=== PATIENT | female | born 1955 | race Caucasian/White ===

== ENCOUNTER 2020-09-09 08:43 | Emergency (ER) | payer MEDICARE, BC ==
[2020-09-09] MEDS ORDERED: Acetaminophen 325 MG Tab PO PRN (09:39)
[2020-09-09] MEDS ORDERED: Albuterol/Ipratropium 4 GM Inhalation Spray INH STA (09:41)
--- NOTE | 2020-09-09 09:43 | EDM.PDOC ---
ED HPI GENERAL MEDICAL PROBLEM - General Chief Complaint: General Stated Complaint: MEDICAL Time Seen by Provider: 09/09/20 09:07 Source of Information: Reports: Patient, RN Notes Reviewed History Limitations: Reports: No Limitations - History of Present Illness INITIAL COMMENTS - FREE TEXT/NARRATIVE: 64-year-old female presents emergency department today with complaint of incr easing shortness of breath, loss of taste and smell has had fevers at home she has been ill for about a week. She did receive her flu vaccine this fall she denies any exposure has been staying at home but has been to the grocery store. - Related Data Allergies Allergy/AdvReac Type Severity Reaction Status Date / Time No Known Allergies Allergy Verified 09/09/20 08:57 Home Meds: Home Meds Aspirin 81 mg PO DAILY 09/09/20 [History] Benzonatate [Tessalon Perle] 100 mg PO TID PRN #20 capsule 09/09/20 [Rx] Fluticasone Propion/Salmeterol [Advair 250-50 Diskus] 1 puff INH BID 09/09/20 [History] Metoprolol Tartrate 12.5 mg PO BID 09/09/20 [History] Oxybutynin [Oxybutynin ER] 5 mg PO DAILY 09/09/20 [History] atorvaSTATin [Lipitor] 20 mg PO BEDTIME 09/09/20 [History] hydroCHLOROthiazide [Hydrochlorothiazide] 12.5 mg PO DAILY 09/09/20 [History] Past Medical History Cardiovascular History: Reports: Hypertension, Stents Respiratory History: Reports: Asthma Genitourinary History: Reports: Other (See Below) Other Genitourinary History: frequency VP SALES History: Reports: - Infectious Disease History Infectious Disease History: Reports: Chicken Pox, Measles, Mumps - Past Surgical History GI Surgical History: Reports: Cholecystectomy Social & Family History - Tobacco Use Tobacco Use Status *Q: Never Tobacco User - Caffeine Use Caffeine Use: Reports: Coffee - Recreational Drug Use Recreational Drug Use: No ED ROS GENERAL - Review of Systems Review Of Systems: See Below Constitutional: Reports: Fever, Chills, Weakness HEENT: Reports: No Symptoms Respiratory: Reports: Shortness of Breath, Cough Cardiovascular: Reports: No Symptoms GI/Abdominal: Reports: No Symptoms ED EXAM, GENERAL - Physical Exam Exam: See Below Exam Limited By: No Limitations General Appearance: Alert, WD/WN, No Apparent Distress Respiratory/Chest: No Respiratory Distress, No Accessory Muscle Use, Chest Non- Tender, Wheezing Cardiovascular: Regular Rate, Rhythm, No Murmur GI/Abdominal: Soft, Non-Tender Course - Vital Signs Last Recorded V/S: Last Vital Signs Temp 99.9 F 09/09/20 10:43 Pulse 96 09/09/20 08:58 Resp 23 H 09/09/20 08:58 BP 148/87 H 09/09/20 08:58 Pulse Ox 97 09/09/20 08:58 - Orders/Labs/Meds Orders: Active Orders 24 hr Category Date Time Status Nurse Communication: Isolation [RC] ASDIRECTED Care 09/09/20 09:40 Active RT Post Treatment Assessment [RC] Click to Edit Care 09/09/20 09:42 Active CORONAVIRUS COVID-19, [facility] Stat Lab 09/09/20 09:39 Received Acetaminophen [TylenoL] Med 09/09/20 09:39 Active 650 mg PO Q4H PRN Isolation [COMM] Stat Oth 09/09/20 09:39 Ordered Medication Orders Acetaminophen (Tylenol) 650 mg PO Q4H PRN PRN Reason: Fever Greater Than 101 Last Admin: 09/09/20 10:43 Dose: 650 mg Documented by: RANJAN Labs: Laboratory Tests 09/09/20 09/09/20 09/09/20 Range/Units 09:19 09:19 09:19 WBC 4.6 (4.5-11.0) K/uL RBC 4.08 (3.30-5.50) M/uL Hgb 12.2 (12.0-15.0) g/dL Hct 37.5 (36.0-48.0) % MCV 92 (80-98) fL MCH 30 (27-31) pg MCHC 33 (32-36) % Plt Count 223 (150-400) K/uL Neut % (Auto) 80 H (36-66) % Lymph % (Auto) 14 L (24-44) % [place] % (Auto) 7 H (2-6) % Eos % (Auto) 0 L (2-4) % Baso % (Auto) 0 (0-1) % Sodium 136 L (140-148) mmol/L Potassium 3.3 L (3.6-5.2) mmol/L Chloride 100 (100-108) mmol/L Carbon Dioxide 27 (21-32) mmol/L Anion Gap 12.3 (5.0-14.0) mmol/L BUN 11 (7-18) mg/dL Creatinine 0.8 (0.6-1.0) mg/dL Est Cr Clr Drug Dosing 52.90 mL/min Estimated GFR (MDRD) > 60 (>60) Glucose 109 H (74-106) mg/dL Lactic Acid 1.0 (0.4-2.0) mmol/L Calcium 8.5 (8.5-10.1) mg/dL Total Bilirubin 0.6 (0.2-1.0) mg/dL Direct Bilirubin 0.21 H (0.0-0.2) mg/dL Indirect Bilirubin 0.39 AST 35 (15-37) U/L ALT 47 (12-78) U/L Alkaline Phosphatase 141 H (46-116) U/L Lactate Dehydrogenase 231 (82-234) U/L C-Reactive Protein 5.57 H (0.0-0.3) mg/dL Total Protein 7.3 (6.4-8.2) g/dL Albumin 3.2 L (3.4-5.0) g/dL Globulin 4.1 H (2.3-3.5) g/dL Albumin/Globulin Ratio 0.8 L (1.2-2.2) Procalcitonin ng/mL 09/09/20 Range/Units 09:19 WBC (4.5-11.0) K/uL RBC (3.30-5.50) M/uL Hgb (12.0-15.0) g/dL Hct (36.0-48.0) % MCV (80-98) fL MCH (27-31) pg MCHC (32-36) % Plt Count (150-400) K/uL Neut % (Auto) (36-66) % Lymph % (Auto) (24-44) % [place] % (Auto) (2-6) % Eos % (Auto) (2-4) % Baso % (Auto) (0-1) % Sodium (140-148) mmol/L Potassium (3.6-5.2) mmol/L Chloride (100-108) mmol/L Carbon Dioxide (21-32) mmol/L Anion Gap (5.0-14.0) mmol/L BUN (7-18) mg/dL Creatinine (0.6-1.0) mg/dL Est Cr Clr Drug Dosing mL/min Estimated GFR (MDRD) (>60) Glucose (74-106) mg/dL Lactic Acid (0.4-2.0) mmol/L Calcium (8.5-10.1) mg/dL Total Bilirubin (0.2-1.0) mg/dL Direct Bilirubin (0.0-0.2) mg/dL Indirect Bilirubin AST (15-37) U/L ALT (12-78) U/L Alkaline Phosphatase (46-116) U/L Lactate Dehydrogenase (82-234) U/L C-Reactive Protein (0.0-0.3) mg/dL Total Protein (6.4-8.2) g/dL Albumin (3.4-5.0) g/dL Globulin (2.3-3.5) g/dL Albumin/Globulin Ratio (1.2-2.2) Procalcitonin < 0.05 ng/mL Meds: Medications Generic Name Dose Route Start Last Admin Trade Name Freq PRN Reason Stop Dose Admin Acetaminophen 650 mg 09/09/20 09:39 09/09/20 10:43 Tylenol PO 650 mg Q4H PRN Administration Fever Greater Than 101 Discontinued Medications Generic Name Dose Route Start Last Admin Trade Name Freq PRN Reason Stop Dose Admin Albuterol/Ipratropium 1 gm 09/09/20 09:41 09/09/20 10:36 Combivent Respimat INH 09/09/20 09:42 2 puff NOW STA Administration Departure - Departure Time of Disposition: 10:51 Disposition: Home, Self-Care 01 Condition: Fair Clinical Impression: Viral syndrome - Discharge Information Prescriptions: Benzonatate [Tessalon Perle] 100 mg PO TID PRN #20 capsule PRN Reason: Cough Instructions: Viral Illness, Adult Referrals: PCP,None [Primary Care Provider] - Forms: ED Department Discharge Additional Instructions: Try Tylenol or Motrin as needed for aches and pains, use the Combivent inhaler for feelings of shortness of breath, try the Tessalon Perles as needed for cough this medication has been faxed to [facility], please followup with your primary care provider in 3-5 days if not better, please call return to the emergency department with worsening of symptoms. Sepsis Event Note (ED) - Evaluation Sepsis Screening Result: Possible Sepsis Risk - Focused Exam Vital Signs: Vital Signs Temp Temp Pulse Resp BP Pulse Ox 09/09/20 10:43 99.9 F 09/09/20 08:58 99.9 F 96 23 H 148/87 H 97 - My Orders Last 24 Hours: My Active Orders 09/09/20 09:39 CORONAVIRUS COVID-19, [facility]E Stat Acetaminophen [TylenoL] 650 mg PO Q4H PRN Isolation [COMM] Stat 09/09/20 09:40 Nurse Communication: Isolation [RC] ASDIRECTED 09/09/20 09:42 RT Post Treatment Assessment [RC] Click to Edit - Assessment/Plan Last 24 Hours: My Active Orders 09/09/20 09:39 CORONAVIRUS COVID-19, JOE Stat Acetaminophen [TylenoL] 650 mg PO Q4H PRN Isolation [COMM] Stat 09/09/20 09:40 Nurse Communication: Isolation [RC] ASDIRECTED 09/09/20 09:42 RT Post Treatment Assessment [RC] Click to Edit Plan: Assessment Acuity = acute Site and laterality = viral syndrome Etiology = unknown Manifestations = cough Location of injury = Home Lab values = CBC unremarkable potassium low at 3.3 consistent hypokalemia lactic acid normal 1.0 LDH normal 231 CRP elevated 5.57 procalcitonin less than 0.05 chest x-ray shows mild cardiomegaly otherwise no specific acute process Plan She did receive good relief from Tylenol and Combivent inhaler she will use this inhaler at home prescription for Tessalon Perles 100 mg p.o. 3 times daily as needed total #20 faxed to [facility] she will continue with Tylenol or Motrin as needed for aches and pains follow-up with primary care in 5 to 7 days if not better, Covid test is pending results in 2 days This note was dictated using [employer] voice recognition software please call with any questions on syntax or grammar.
--- NOTE | 2020-09-09 10:39 | CR ---
CHEST: Portable 09/09/2020 at 10:05 AM CLINICAL HISTORY:Respiratory failure COMPARISON:None FINDINGS: Lung markings are exaggerated by less than optimal inspiration and patient's large body habitus. Multiple images were attempted. Heart appears enlarged. There are atherosclerotic changes in the aorta. There are patchy densities in both mid and lower lung [place]. Some of this may be patchy atelectasis but superimposed infiltrates are not excluded. Impression: Limited study due to poor inspiratory level and patient's large body habitus Mild cardiomegaly Increased lung markings in the mid and lower lung [place]. Some of this is patchy atelectasis but superimposed infiltrates are not excluded
== END 2020-09-09 11:15 | disposition home or self-care (01) ==
LOC: JP.ED 08:43
DX: B34.9 Viral infection, unspecified (principal); I10 Essential (primary) hypertension; J45.909 Unspecified asthma, uncomplicated; Z95.5 Presence of coronary angioplasty implant and graft; Z79.82 Long term (current) use of aspirin; Z79.899 Other long term (current) drug therapy
CPT/HCPCS: 71045; 80048; 80076; 83605; 83615; 84145; 85025; 86140; 94640; 99285; A9270; U0002; 36415